=== PATIENT | male | born 1970 | race Caucasian/White ===

== ENCOUNTER 2021-05-24 01:19 | Emergency (ER) | payer OTHER, BC ==
[2021-05-24] MEDS ORDERED: Acetaminophen/HYDROcodone 325-5 MG Tab ONE (02:00)
--- NOTE | 2021-05-24 08:38 | CR ---
Date of Service: 05/24/21 Clinical Data: fall RIGHT ANKLE: There is soft tissue swelling adjacent to the ankle joint. There is a moderately displaced oblique fracture through the distal fibular metaphysis. No acute abnormalities. There are plantar and posterior calcaneal spurs. [id number] [facility]
--- NOTE | 2021-05-24 09:43 | EDM.PDOC ---
ED HPI GENERAL MEDICAL PROBLEM - General Chief Complaint: Lower Extremity Injury/Pain Stated Complaint: fall Time Seen by Provider: 05/24/21 01:42 - History of Present Illness INITIAL COMMENTS - FREE TEXT/NARRATIVE: Pt comes to the ER with C/O falling and injuring his Rt ankle. He was leaving work when he slipped on ice going out the door and fell. He states he landed hard on his Rt ankle. He has pain and swelling. No bleeding. No other injuries. Right Ankle Pain Score (Numeric/FACES): 7 - Related Data Allergies Allergy/AdvReac Type Severity Reaction Status Date / Time No Known Allergies Allergy Verified 05/24/21 01:45 Home Meds: Home Meds NK [No Known Home Meds] 05/24/21 [History] Past Medical History - Past Health History Medical/Surgical History: Denies Medical/Surgical History Social & Family History - Family History Family Medical History: No Pertinent Family History - Tobacco Use Tobacco Use Status *Q: Never Tobacco User - Caffeine Use Caffeine Use: Reports: None - Recreational Drug Use Recreational Drug Use: No Review of Systems - Review of Systems Review Of Systems: Comprehensive ROS is negative, except as noted in HPI. Musculoskeletal: Reports: Other (Rt ankle injury) ED EXAM, GENERAL - Physical Exam Exam: See Below Extremities: Other (Examining his Rt ankle reveals the skin is intact. There is moderate swelling around the lateral malleolus. Tendernes with light palpation on the laterat and anterior side of the ankle.) Course - Vital Signs Last Recorded V/S: Last Vital Signs Temp 96.8 F L 05/24/21 01:35 Pulse 86 05/24/21 01:35 Resp 18 05/24/21 01:35 BP 139/87 05/24/21 01:35 Pulse Ox 97 05/24/21 01:35 - Orders/Labs/Meds Meds: Medications Discontinued Medications Generic Name Dose Route Start Last Admin Trade Name Freq PRN Reason Stop Dose Admin Hydrocodone Bitart/Acetaminophen 10 tab 05/24/21 02:00 Acetaminophen/Hydrocodone 325-5 Mg Tab .ROUTE 05/24/21 02:01 .STK-MED ONE - Radiology Interpretation Free Text/Narrative:: X-RAYs show a distal Fib fracture with mild displacement. - Re-Assessments/Exams Free Text/Narrative Re-Assessment/Exam: 05/24/21 09:41 Pt will be given crutches and a walking Cam boot. NWB for now - elevate and ice frequently for 2-3 days. [place] given for pain control. He should follow up in the clinic within a few days for re check. Departure - Departure Time of Disposition: 02:15 Disposition: Home, Self-Care 01 Condition: Good Clinical Impression: Fibula fracture Qualifiers: Encounter type: initial encounter Fibula location: distal Fracture type: closed Fracture morphology: unspecified fracture morphology Laterality: right Qualified Code(s): S82.831A - Other fracture of upper and lower end of right fibula, initial encounter for closed fracture - Discharge Information *PRESCRIPTION DRUG MONITORING PROGRAM REVIEWED*: No *COPY OF PRESCRIPTION DRUG MONITORING REPORT IN PATIENT ENRIQUE: No Instructions: Ankle Fracture, [id number] Referrals: PCP,None [Primary Care Provider] - Forms: ED Department Discharge Additional Instructions: Discharge home. Wear the walking boot and use the crutches when ambulating. Rest, elevate and ice the right ankle. When you can start putting weight on the ankle, then you can stop using the crutches-approximately 10-14 days. Hydrocodone/APAP 1 Tablet by mouth every 6 hours as needed for pain. Recheck in the clinic in 1 week. Call or return to the ER if you have any concerns. Sepsis Event Note (ED) - Evaluation Sepsis Screening Result: No Definite Risk - Focused Exam Vital Signs: Vital Signs Temp Pulse Resp BP Pulse Ox 05/24/21 01:35 96.8 F L 86 18 139/87 97 05/24/21 01:20 96.8 F L 86 18 139/87 97
== END 2021-05-24 02:25 | disposition home or self-care (01) ==
LOC: LB.ED 01:19
DX: S82.831A Other fracture of upper and lower end of right fibula, initial encounter for closed fracture (principal); W00.0XXA Fall on same level due to ice and snow, initial encounter
CPT/HCPCS: 73610; 99283; A9270